=== PATIENT | male | born 1980 | race Caucasian/White ===

== ENCOUNTER 2017-02-21 19:59 | Emergency (ER) | payer OTHER ==
[~2017-02-21] VITALS: Ht 182.9 cm; Wt 95.0 kg
[~2017-02-21 19:59] MED LIST: NORCO 5/3251 TABLET PO
[2017-02-21 21:41] LABS: HEMATOCRIT 45.4 % (38.0-50.0); MCH 28.7 PG (29.0-34.0); MCHC 34.4 G/DL (30.0-36.0); MCV 83.6 FL (86-99); MEAN PLAT.VOLUME 10.2 uM^3 (9.0-12.4); PLATELET COUNT 273 K/uL (156-360); RBC DIS.WIDTH-CV 11.7 % (11.8-14.6); RBC DIS.WIDTH-SD 35.3 % (39-53); RED BLOOD COUNT 5.43 M/uL (4.00-5.50); WHITE BLOOD COUNT 8.1 K/uL (4.1-10.2)
[2017-02-21 21:59] LABS: CHLORIDE 105 mEq/L (99-109); POTASSIUM 3.9 mEq/L (3.7-5.4); SODIUM 141 mEq/L (136-147)
[2017-02-21 22:01] LABS: GLUCOSE 94 mg/dL (70-99)
[2017-02-21 22:02] LABS: ANION GAP 10 MEQ/L (2-14)
[2017-02-21 22:04] LABS: GFR ESTIMATE (CALCULATED) > 59 mL/min/
[2017-02-21 22:05] LABS: UREA NITROGEN (BUN) 19 mg/dL (9-23)
[2017-02-22] MEDS ORDERED: LEVAQUIN500 MG PO (00:12)
[2017-02-22] MEDS ORDERED: BACTROBAN OINTM22 GM TP (00:15)
[2017-02-22 00:52] VITALS: BP 167/93
== END 2017-02-22 00:53 | disposition home or self-care (01) ==
LOC: EME 19:59 → EXP 19:59
DX: S61.031D Puncture wound without foreign body of right thumb without damage to nail, subsequent encounter (principal); W26.8XXD Contact with other sharp object(s), not elsewhere classified, subsequent encounter; L03.011 Cellulitis of right finger; B95.62 Methicillin resistant Staphylococcus aureus infection as the cause of diseases classified elsewhere
CPT/HCPCS: 80048; 85027; 99281; 99284

== ENCOUNTER 2017-02-27 19:27 | Observation (INO) | payer OTHER ==
[~2017-02-27] VITALS: Ht 182.9 cm; Wt 94.3 kg
[~2017-02-27 19:27] MED LIST changes: +BACTROBAN OINTM22 GM TP; +LEVAQUIN500 MG PO
[2017-02-27 19:52] VITALS: BP 144/97
[2017-02-27 21:25] LABS: EOSINOPHIL (%) 1.5 % (0-5); EOSINOPHIL COUNT 0.1 K/uL (0-0.3); HEMATOCRIT 42.1 % (38.0-50.0); IMMATURE GRANULOCYTE (%) 0.3 % (0.0-0.7); INSTRUMENT ABS NEUTROPHIL CT 4.8 K/uL; LYMPHOCYTE COUNT 2.5 K/uL (1.0-2.8); MCH 30.1 PG (29.0-34.0); MCHC 36.6 G/DL (30.0-36.0); MCV 82.2 FL (86-99); MONOCYTE (%) 6.3 % (3-12); MONOCYTE COUNT 0.5 K/uL (0-0.8); NEUTROPHIL (%) 60.1 % (45-76); NEUTROPHIL COUNT 4.8 K/uL (1.8-6.4); PLATELET COUNT 264 K/uL (156-360); RBC DIS.WIDTH-CV 11.8 % (11.8-14.6); RED BLOOD COUNT 5.12 M/uL (4.00-5.50)
[2017-02-27 21:41] LABS: ERTH.SED.RATE 13 MM/HR (0-15)
[2017-02-27 21:43] LABS: ANION GAP 11 MEQ/L (2-14); C-REACTIVE PROTEIN 3.3 MG/L (0-10); CHLORIDE 103 MEQ/L (99-109); GFR ESTIMATE (CALCULATED) > 59 mL/min/; GLUCOSE 126 mg/dL (70-99); POTASSIUM 3.5 MEQ/L (3.7-5.4); SAMPLE HEMOLYSIS CHECK 0; SAMPLE ICTERIC CHECK 0; SAMPLE LIPEMIA CHECK 0; SODIUM 141 MEQ/L (136-147); UREA NITROGEN (BUN) 14 mg/dL (9-23)
[2017-02-27 23:58] VITALS: BP 108/69
[2017-02-28 03:56] VITALS: BP 114/65
[2017-02-28 08:15] VITALS: BP 122/81
[2017-02-28 11:36] VITALS: BP 126/87
[2017-02-28 15:45] VITALS: BP 122/85
[2017-02-28 20:13] VITALS: BP 138/78
[2017-03-01 00:21] VITALS: BP 122/73
[2017-03-01 04:04] VITALS: BP 118/79
[2017-03-01 09:03] VITALS: BP 139/89
[2017-03-01] MEDS ORDERED: MOTRIN400 MG PO (10:15)
[2017-03-01] MEDS ORDERED: VANCOMYCIN1 GM/150 M IV ×2 (10:20→10:54)
[2017-03-01 10:31] LABS: ANION GAP 10 MEQ/L (2-14); CHLORIDE 104 MEQ/L (99-109); GFR ESTIMATE (CALCULATED) > 59 mL/min/; GLUCOSE 127 mg/dL (70-99); SAMPLE HEMOLYSIS CHECK 0; SAMPLE ICTERIC CHECK 0; SAMPLE LIPEMIA CHECK 0; SODIUM 140 MEQ/L (136-147); UREA NITROGEN (BUN) 12 mg/dL (9-23)
[2017-03-01 11:59] VITALS: BP 147/95
== END 2017-03-01 14:51 | disposition home or self-care (01) ==
LOC: 5WEST 19:27
PROVIDERS: Hospitalist
PROC: 05HB33Z Insertion of Infusion Device into Right Basilic Vein, Percutaneous Approach (ICD-10-PCS; principal; 2017-02-28)
DX: M86.9 Osteomyelitis, unspecified (principal); L03.011 Cellulitis of right finger; B95.62 Methicillin resistant Staphylococcus aureus infection as the cause of diseases classified elsewhere; S61.031A Puncture wound without foreign body of right thumb without damage to nail, initial encounter
CPT/HCPCS: 76937; 80048; 80202; 82565; 84520; 85025; 85651; 86140; 87040; G0378; J1650; J3370